=== PATIENT | female | born 1935 | race Caucasian/White ===

== ENCOUNTER 2020-04-10 14:56 | Outpatient (CLI) | payer OTHER, SELFPAY ==
--- NOTE | ~2020-04-10 | MR_ITS ---
EXAMINATION: MR lumbar spine wo con EXAM DATE: 04/10/2020 15:37 INDICATION: Low back pain. TECHNIQUE: Multi-sequential, multiplanar MR images of the lumbar spine were obtained without contrast . Sagittal T1, T2, T2 fat saturation images. Axial T2 weighted images. There is no prior study for comparison. FINDINGS: There is moderate anterior and central chronic compression fracture of the L2 vertebral bod y. Mild diffuse loss of the L3, L4 and L5 vertebral body heights. There is moderate to severe loss of the L4-5 disc height, moderate at L3-4. Mild disc disease at the other lumbar levels. The conus medu llaris terminates at the L1/2 level and has normal signal intensity and morphology. 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 Paraspinal soft tissue otherwise unremarkable. There are no thien picious marrow signal abnormalities. Level by level evaluation: T12-L1: There is a mild diffuse disc bulge, superimposed right central protrusion. Facet arthropathy: None. Neural foraminal stenosis: No stenosis. Central canal stenosis: Mild. L1-L2: There is a mild diffuse disc bulge. Facet arthropathy: None. Neural foraminal stenosis: No stenosis. Central canal stenosis: No stenosis. L2-L3: There is a mild diffuse disc bulge. Facet arthropathy: Mild. Neural foraminal stenosis: Mild bilateral. Central canal stenosis: Mild. L3-L4: There is a mild to moderate diffuse disc bulge. Facet arthropathy: Mild to moderate . Ligamentum flavum enlargement. Neural foraminal stenosis: Mild to moderate bilateral. Central canal stenosis: Mild to moderate. L4-L5: There is a moderate diffuse disc bulge. Facet arthropathy: Moderate . Ligamentum flavum enlargement. Neural foraminal stenosis: Moderate right, mild to moderate left. Central canal stenosis: Moderate. L5-S1: There is a mild to moderate diffuse disc bulge. Facet arthropathy: Mild to moderate. Neural foraminal stenosis: Moderate to severe left, moderate right. Central canal stenosis: Mild to moderate. IMPRESSION: 1. Moderate lumbar spondylosis. 2. Chronic compression fractures, moderate at L2. Reviewed, dictated and finalized at location A.
== END 2020-04-10 14:57 | disposition home or self-care (01) ==
PROVIDERS: PCP Internal Medicine; Visit Provider Anesthesiology Pain Medicine
DX: M54.5 Low back pain (principal); M47.816 Spondylosis without myelopathy or radiculopathy, lumbar region; M48.56XA Collapsed vertebra, not elsewhere classified, lumbar region, initial encounter for fracture
CPT/HCPCS: 72148